=== PATIENT | female | born 1965 | race Caucasian/White ===

== ENCOUNTER 2023-12-22 10:37 | Day surgery (SDC) | payer OTHER ==
[2023-12-22] MEDS ORDERED: fentaNYL citrate 0.05 MG/ML VIAL ONE (12:01)
[2023-12-22] MEDS ORDERED: ePHEDrine 50 MG/ML VIAL ONE (12:01)
[2023-12-22] MEDS ORDERED: MIDAZOLAM 5 MG/5 ML VIAL ONE (12:01)
[2023-12-22] MEDS ORDERED: PROPOFOL 200 MG/20 ML VIAL IV ONE (12:34)
[2023-12-22] MEDS ORDERED: LIDOCAINE 2% 100 MG/5 ML SYR IVP ONE (12:35)
== END 2023-12-22 13:55 | disposition home or self-care (01) ==
LOC: MDS 10:37 → MMU 10:58 → MDS 13:55
PROVIDERS: ATTEND Internal Medicine Gastroenterology
DX: Z12.11 Encounter for screening for malignant neoplasm of colon (principal); Z86.010 Personal history of colon polyps; M81.0 Age-related osteoporosis without current pathological fracture; Z98.890 Other specified postprocedural states
CPT/HCPCS: 45378; J2001; J2250; J2704; J3010